=== PATIENT | female | born 1970 | race Caucasian/White ===

== ENCOUNTER 2021-09-19 13:43 | Emergency (ER) | payer MEDICAID ==
[~2021-09-19] VITALS: Ht 170.2 cm; Wt 59.1 kg
[2021-09-19 14:05] VITALS: BP 100/59
[2021-09-19 14:45] LABS: CLARITY,URINE CLOUDY (Clear); COLOR,URINE YELLOW (Yellow); GLUCOSE, URINE NEGATIVE (Neg); KETONES,URINE TRACE mg/dl (Neg); LEUKOCYTE ESTERASE ,URINE SMALL (Neg); NITRITES, URINE NEGATIVE (Neg); OCCULT BLOOD,URINE NEGATIVE (Neg); PH,URINE 7.5 (4.8-8.0); PROTEIN,URINE NEGATIVE (Neg); UROBILINOGEN,URINE 0.2 E.U/dL (0.2-1.0)
[2021-09-19 14:46] LABS: URINE HCG NEGATIVE (NEG)
[2021-09-19 14:52] LABS: UA COLLECTION TYPE CLN CATCH MIDSTREAM
[2021-09-19 14:56] LABS: MUCUS STRANDS FEW /LPF (Neg); SQUAMOUS EPITHELIAL CELL,UR MANY /LPF (FEW)
[2021-09-19 14:59] LABS: RBC,URINE 0-2 /HPF (0-2)
[2021-09-19 15:00] LABS: BACTERIA,URINE 2+ /HPF (Neg)
[2021-09-19] MEDS ORDERED: CEPH500C82 PO (15:42)
[2021-09-19] MEDS ORDERED: cephalexin 500mg capsule PO ONE (16:05)
--- NOTE | 2021-09-19 16:16 | NUR ---
PO MED GIVEN
== END 2021-09-19 16:18 | disposition home or self-care (01) ==
LOC: ER 13:43
DX: N39.0 Urinary tract infection, site not specified (principal); Z79.899 Other long term (current) drug therapy
CPT/HCPCS: 81001; 81025; 99283